=== PATIENT | male | born 1980 | race African-American/Black ===

== ENCOUNTER 2016-12-28 18:02 | Emergency (ER) | payer SELFPAY ==
[~2016-12-28] VITALS: Ht 182.9 cm; Wt 121.6 kg
[~2016-12-28 18:02] MED LIST: NOHOMEMEDS
[2016-12-28] MEDS ORDERED: ANUSOL HC,ANUCO25 MG PR (20:39)
[2016-12-28 20:45] VITALS: BP 143/66
== END 2016-12-28 20:49 | disposition home or self-care (01) ==
LOC: EME 18:02
DX: K64.5 Perianal venous thrombosis (principal); F17.200 Nicotine dependence, unspecified, uncomplicated
CPT/HCPCS: 99281; 99283

== ENCOUNTER 2017-11-13 07:41 | Day surgery (SDC) | payer SELFPAY ==
[~2017-11-13] VITALS: Ht 182.9 cm; Wt 122.4 kg
[~2017-11-13 07:41] MED LIST changes: +ANUSOL HC,ANUCO25 MG PR
[2017-11-13 08:12] VITALS: BP 126/56
[2017-11-13] MEDS ORDERED: NORCO 5/3251 TABLET PO (11:12)
[2017-11-13 11:51] VITALS: BP 137/71
[2017-11-13 13:00] VITALS: BP 130/65
== END 2017-11-13 13:00 | disposition home or self-care (01) ==
LOC: SDC 07:41
DX: K60.2 Anal fissure, unspecified (principal); K64.5 Perianal venous thrombosis; F17.210 Nicotine dependence, cigarettes, uncomplicated
CPT/HCPCS: 88304; J0131; J0690; J1100; J1335; J1885; J2250; J2405; J7050; S0020